=== PATIENT | male | born 1980 | race Caucasian/White ===

== ENCOUNTER 2020-09-25 09:19 | Outpatient (REF) | payer OTHER, SELFPAY | END 2020-09-25 09:20 | disposition home or self-care (01) | LOC: HO.LAB 09:19 | PROVIDERS: Visit Provider Internal Medicine | DX: Z20.828 Contact with and (suspected) exposure to other viral communicable diseases (principal) | CPT/HCPCS: C9803; U0003 ==

== ENCOUNTER 2021-06-26 10:21 | Outpatient (REF) | payer OTHER, SELFPAY ==
[2021-06-26 11:02] LABS: COVID-19 Test Negative (Negative)
== END 2021-06-26 10:22 | disposition home or self-care (01) ==
LOC: HO.LAB 10:21
PROVIDERS: PCP Family Medicine; Visit Provider Internal Medicine
DX: Z20.822 Contact with and (suspected) exposure to COVID-19 (principal)
CPT/HCPCS: 36415; 87635; C9803

== ENCOUNTER 2021-07-14 15:01 | Outpatient (REF) | payer OTHER, SELFPAY | END 2021-07-14 15:02 | disposition home or self-care (01) | LOC: HO.LAB 15:01 | PROVIDERS: PCP Family Medicine; Visit Provider Internal Medicine | DX: Z20.822 Contact with and (suspected) exposure to COVID-19 (principal) | CPT/HCPCS: C9803; U0003; U0005 ==

== ENCOUNTER 2021-07-30 12:30 | Outpatient (REF) | payer OTHER, SELFPAY | END 2021-07-30 12:31 | disposition home or self-care (01) | LOC: HO.LAB 12:30 | PROVIDERS: Visit Provider Internal Medicine | DX: Z20.822 Contact with and (suspected) exposure to COVID-19 (principal) | CPT/HCPCS: C9803; U0003; U0005 ==

== ENCOUNTER 2021-08-19 14:47 | Outpatient (REF) | payer OTHER, SELFPAY ==
[2021-08-19 15:26] LABS: COVID-19 Test Negative (Negative)
== END 2021-08-19 14:48 | disposition home or self-care (01) ==
LOC: HO.LAB 14:47
PROVIDERS: Visit Provider Internal Medicine
DX: Z20.822 Contact with and (suspected) exposure to COVID-19 (principal)
CPT/HCPCS: 36415; 87635; C9803

== ENCOUNTER 2021-08-25 15:07 | Outpatient (REF) | payer OTHER, SELFPAY ==
[2021-08-25 16:01] LABS: COVID-19 Test Negative (Negative)
== END 2021-08-25 15:08 | disposition home or self-care (01) ==
LOC: HO.LAB 15:07
PROVIDERS: Visit Provider Internal Medicine
DX: Z20.822 Contact with and (suspected) exposure to COVID-19 (principal)
CPT/HCPCS: 36415; 87635; C9803

== ENCOUNTER 2021-09-12 09:32 | Outpatient (REF) | payer OTHER, SELFPAY ==
[2021-09-12 09:54] LABS: COVID-19 Test Negative (Negative)
== END 2021-09-12 09:33 | disposition home or self-care (01) ==
LOC: HO.LAB 09:32
PROVIDERS: PCP Family Medicine; Visit Provider Internal Medicine
DX: Z20.822 Contact with and (suspected) exposure to COVID-19 (principal)
CPT/HCPCS: 36415; 87635; C9803

== ENCOUNTER 2021-09-17 11:34 | Outpatient (REF) | payer OTHER, SELFPAY ==
[2021-09-17 12:19] LABS: COVID-19 Test Negative (Negative)
== END 2021-09-17 11:35 | disposition home or self-care (01) ==
LOC: HO.LAB 11:34
PROVIDERS: PCP Family Medicine; Visit Provider Internal Medicine
DX: Z20.822 Contact with and (suspected) exposure to COVID-19 (principal)
CPT/HCPCS: 36415; 87635; C9803